=== PATIENT | female | born 1970 | race Hispanic/Latino ===

== ENCOUNTER 2018-01-16 19:31 | Observation (INO) | payer OTHER ==
[2018-01-16 19:39] VITALS: BMI 26.9
[2018-01-16 19:49] VITALS: TEMP 98.1
--- NOTE | 2018-01-16 20:02 | ED PDOC ---
Arrival/HPI - General Chief Complaint: Chest Pain Time Seen by Provider: 01/16/18 19:51 Historian: Patient, Family (Aunt and Uncle) - History of Present Illness Narrative History of Present Illness (Text): 01/17/18 20:36 A 48 year old female, whose past medical history includes kidney stones, presents to the emergency department complaining of non radiating, constant left sided chest pain since 1 hour ago. Patient reports pain was sitting at home when a sharp stabbing pain suddenly occurred. Patient reports experiencing associated leg numbness bilaterally and dizziness. Patient denies previous episodes of this pain. Patient denies anything increases the pain and denies taking any medication for the pain. Patient denies any fever, chills, cough, shortness of breath, diarrhea, nausea, vomiting, urinary symptoms, back pain, neck pain, headache, weakness, recent travel or any other complaints. 01/17/18 05:57 01/17/18 06:03 Time/Duration: 4-6 hours (earlier ton) Symptom Onset: Sudden Symptom Course: Unchanged Quality: Stabbing Severity Level: Moderate Activities at Onset: Light Context: Home Past Medical History - Provider Review Nursing Documentation Reviewed: Yes - Renal Hx Kidney Stones: Yes - Psychiatric Hx Substance Use: No - Surgical History Hx Appendectomy: Yes - Anesthesia Hx Anesthesia: No Hx Anesthesia Reactions: No Hx Malignant Hyperthermia: No Family/Social History - Physician Review Nursing Documentation Reviewed: Yes Family/Social History: Unknown Family HX Smoking Status: Never Smoked Hx Alcohol Use: No Hx Substance Use: No Allergies/Home Meds Allergies/Adverse Reactions: Allergies Penicillins Allergy (Verified 01/16/18 19:38) ANAPHYLAXIS Home Medications: Home Meds Medication Instructions Recorded Confirmed RX: No Known Home Med 01/16/18 01/16/18 Review of Systems - Physician Review All systems were reviewed & negative as marked: Yes - Review of Systems Constitutional: absent: Fevers, Night Sweats Respiratory: absent: SOB Cardiovascular: Chest Pain (+left sided chest pain) Gastrointestinal: absent: Diarrhea, Nausea, Vomiting Genitourinary Female: absent: Urine Output Changes Musculoskeletal: absent: Back Pain, Neck Pain Neurological: Dizziness, Other (+numbness in legs bilaterally). absent: Headache Physical Exam Vital Signs Reviewed: Yes Vital Signs Temp Pulse Resp BP Pulse Ox 01/16/18 19:38 98.1 F 80 18 145/103 H 100 Temperature: Afebrile Blood Pressure: Hypertensive Pulse: Regular Respiratory Rate: Normal Appearance: Positive for: Well-Appearing, Non-Toxic, Comfortable Pain Distress: None Mental Status: Positive for: Alert and Oriented X 3 - Systems Exam Head: Present: Atraumatic, Normocephalic Pupils: Present: PERRL Extroacular Muscles: Present: EOMI Conjunctiva: Present: Normal Mouth: Present: Moist Mucous Membranes Neck: Present: Normal Range of Motion Respiratory/Chest: Present: Clear to Auscultation, Good Air Exchange. No: Respiratory Distress, Accessory Muscle Use Cardiovascular: Present: Regular Rate and Rhythm, Normal S1, S2. No: Murmurs Abdomen: No: Tenderness, Distention, Peritoneal Signs Back: Present: Normal Inspection Upper Extremity: Present: Normal Inspection. No: Cyanosis, Edema Lower Extremity: Present: Normal Inspection. No: Edema Neurological: Present: GCS=15, CN II-XII Intact, Speech Normal Skin: Present: Warm, Dry, Normal Color. No: Rashes Psychiatric: Present: Alert, Oriented x 3, Normal Insight, Normal Concentration Medical Decision Making ED Course and Treatment: 01/16/18 20:40 Impression: 48 year old presenting to the emergency department complaining of chest pain. Plan: -- EKG -- Chest X-ray -- Cardiac w/u -- Aspirin -- UDS -- Reassess and disposition Progress Notes: 01/16/18 20:40 EKG: Ordered, reviewed, and independently interpreted the EKG. Rate : 80 BPM Rhythm : NSR Interpretation : Left axis deviation, No ST-segment elevations or depressions, no T-wave inversions, normal intervals. 01/16/18 22:45 Patient was reassessed and reports no chest discomfort after ASA administration. Patient agreeable w/POC to admit for observation. 01/16/18 22:53 Chest X-ray reviewed by me, results show rotatation and NAD. 01/16/18 22:[address] Torres who accepts the patient for admission for further observation and consult for Dr. Rosen, director education. - Scribe Statement The provider has reviewed the documentation as recorded by the Scribdamari Tao All medical record entries made by the Scribe were at my direction and personally dictated by me. I have reviewed the chart and agree that the record accurately reflects my personal performance of the history, physical exam, medical decision making, and the department course for this patient. I have also personally directed, reviewed, and agree with the discharge instructions and disposition. Disposition/Present on Arrival - Present on Arrival Any Indicators Present on Arrival: No History of DVT/PE: No History of Uncontrolled Diabetes: No Urinary Catheter: No History of Decub. Ulcer: No History Surgical Site Infection Following: None - Disposition Have Diagnosis and Disposition been Completed?: Yes Diagnosis: Chest pain Disposition: HOSPITALIZED Disposition Time: 22:58 Patient Plan: Admission Patient Problems: Current Active Problems Problem Status Onset Chest pain Acute Condition: STABLE
[2018-01-16 21:02] LABS: BASO # 0.04 K/mm3 (0.0-2.0); BASO % 0.4 % (0.0-3.0); EOS # 0.2 (0.0-0.7); EOS % 1.8 % (1.5-5.0); GRAN # 5.53 (1.4-6.5); GRAN % 57.9 % (50.0-68.0); LYMPH # 2.9 (1.2-3.4); LYMPH % 30.2 % (22.0-35.0); MEAN CELL VOLUME 92.1 fl (80.0-105.0); MEAN CORPUSCULAR HEMOGLOBIN 31.1 pg (25.0-35.0); MEAN CORPUSCULAR HGB CONC 33.8 g/dl (31.0-37.0); MEAN PLATELET VOLUME 10.2 fl (7.0-11.0); MONO # 0.9 (0.1-0.6); MONO % 9.7 % (1.0-6.0); RBC 4.18 10^6/uL (3.5-6.1); RED CELL DISTRIBUTION WIDTH 13.2 % (11.5-14.5); WHITE BLOOD COUNT 9.6 10^3/ul (4.5-11.0)
[2018-01-16 21:16] LABS: ALB/GLOB RATIO 1.2 (1.1-1.8); ALBUMIN 3.8 g/dL (3.0-4.8); ALT/SGPT 25 U/L (7-56); AST/SGOT 29 U/L (14-36); BLOOD UREA NITROGEN 14 mg/dL (7-21); CALCIUM 9.3 mg/dL (8.4-10.5); GFR NON-AFRICAN AMERICAN > 60
[2018-01-16 21:27] LABS: TROPONIN I < 0.01 ng/mL
[2018-01-16 22:25] LABS: URINE APPEARANCE SL CLOUDY (CLEAR); URINE BILIRUBIN NEGATIVE (NEGATIVE); URINE BLOOD LARGE (NEGATIVE); URINE COLOR YELLOW (YELLOW); URINE GLUCOSE (UA) NEGATIVE (NEGATIVE); URINE LEUKOCYTE ESTERASE SMALL Leu/uL (NEGATIVE); URINE PROTEIN NEGATIVE mg/dL (<30 mg/dL); URINE UROBILINOGEN 0.2 E.U./dL (<1 E.U./dL)
[2018-01-16 22:31] LABS: URINE RBC NEGATIVE /hpf (0-2)
[2018-01-16 23:07] LABS: BARBITURATES, UR NEGATIVE (NEGATIVE); BENZODIAZEPINES, UR NEGATIVE (NEGATIVE); OPIATES, UR NEGATIVE (NEGATIVE); PHENCYCLIDINE, UR NEGATIVE (NEGATIVE)
[2018-01-17 00:10] VITALS: RESP 18
[2018-01-17] MEDS ORDERED: Potassium Chloride 20 mEq ER Tab PO STA (00:38)
[2018-01-17 06:04] VITALS: BP 121/85; O2SAT 96
[2018-01-17 07:29] LABS: HEMOGLOBIN 13.1 g/dL (12.0-16.0); MEAN CELL VOLUME 91.6 fl (80.0-105.0); MEAN CORPUSCULAR HEMOGLOBIN 30.5 pg (25.0-35.0); MEAN CORPUSCULAR HGB CONC 33.3 g/dl (31.0-37.0); MEAN PLATELET VOLUME 9.5 fl (7.0-11.0); RBC 4.29 10^6/uL (3.5-6.1); RED CELL DISTRIBUTION WIDTH 13.3 % (11.5-14.5); WHITE BLOOD COUNT 7.6 10^3/ul (4.5-11.0)
[2018-01-17 07:55] LABS: TROPONIN I < 0.01 ng/mL
[2018-01-17 07:57] LABS: ALB/GLOB RATIO 1.1 (1.1-1.8); ALBUMIN 3.7 g/dL (3.0-4.8); ALT/SGPT 17 U/L (7-56); AST/SGOT 26 U/L (14-36); BLOOD UREA NITROGEN 10 mg/dL (7-21); CALCIUM 8.6 mg/dL (8.4-10.5); GFR NON-AFRICAN AMERICAN > 60; HDL CHOLESTEROL 50 mg/dL (29-60)
[2018-01-17 07:59] LABS: LDL CHOLESTEROL 108 mg/dL (0-129)
[2018-01-17] MEDS ORDERED: Pantoprazole 40 mg EC Tab PO SCH (08:00)
--- NOTE | 2018-01-17 09:39 | CARD ---
APPROVED REPORT Date of service: 01/16/2018 EKG Measurement Heart [id number] MD [id number] <Conclusion> Normal sinus rhythm Left axis deviation Possible Lateral infarct, age undetermined Abnormal ECG
--- NOTE | 2018-01-17 10:06 | RAD ---
Date of service: 01/16/2018 HISTORY: chest pain COMPARISON: No prior. FINDINGS: LUNGS: No active pulmonary disease. PLEURA: No significant pleural effusion identified, no pneumothorax apparent. CARDIOVASCULAR: No atherosclerotic calcification present Normal. OSSEOUS STRUCTURES: No significant abnormalities. VISUALIZED UPPER ABDOMEN: Normal. OTHER FINDINGS: None. IMPRESSION: No active disease.
[2018-01-17 14:19] VITALS: PULSE 71
--- NOTE | 2018-01-18 17:49 | CON ---
DATE: 01/17/2018 LOCATION: Patient in room 270, bed 2. REASON FOR CONSULTATION: Chest pain. HISTORY OF PRESENT ILLNESS: A 48-year-old female admitted with one-hour duration of stabbing type of chest pain and face became red with the pain. Patient also felt hot. Denies any palpitation or shortness of breath associated with this pain. Denies any prior history of any exertional chest pain or tightness or anginal type of symptoms. Patient states that previously she known to have anxiety. Patient not on any medications at home. PAST MEDICAL HISTORY: Positive for kidney stones, appendectomy, and anxiety. PERSONAL HISTORY: Patient drinks socially. Denies smoking. ALLERGIES: PATIENT ALLERGIC TO PENICILLIN AND CIPRO. MEDICATIONS AT HOME: Patient does not take any medications at home. FAMILY HISTORY: Mother has history of high blood pressure and also had brain aneurysm. REVIEW OF SYSTEMS: All the systems reviewed, positive mentioned in the history, others were negative. PHYSICAL EXAMINATION: VITAL SIGNS: Blood pressure 121/85, respirations 18, pulse 64, and temperature 98.1. HEENT: Head is normocephalic. Eyes: Pupils normal. Conjunctivae normal. Nose and throat: Normal. NECK: JVP low. Carotids equal. THORAX: AP diameter normal. LUNGS: Clear. CARDIOVASCULAR: S1, S2. ABDOMEN: Soft. No tenderness. No organomegaly. Bowel sounds normal. EXTREMITIES: No clubbing. No cyanosis. LABORATORY DATA: WBC 7.6, hemoglobin 13.1, hematocrit 39.3, and platelets 317. Sodium 138, potassium initially on admission was 3.3, but today potassium is 3.9. BUN and creatinine are normal. Calcium, magnesium, and phosphorous normal. Troponin x2 negative. Triglycerides 73, cholesterol 164, LDL 108, HDL 50. AST and ALT normal. Chest x-ray clear. EKG showed regular sinus rhythm, left anterior hemiblock. DIAGNOSES: Atypical chest pain and hypokalemia which has been corrected. PLAN: Patient wants to go home. Patient will do nuclear stress test and echocardiogram as outpatient. All arrangements have been made and patient will be followed in office and will follow with you. Magdy Rosen MD [facility] # [id number]
== END 2018-01-17 16:18 | disposition home or self-care (01) ==
LOC: ED 19:31 → ERH 23:05 → 2RNO 01-17 00:37 → 2RSO 01-17 11:01
PROVIDERS: ADMIT Internal Medicine; ATTEND Internal Medicine
DX: R07.89 Other chest pain (principal); E87.6 Hypokalemia; F41.9 Anxiety disorder, unspecified; Z87.442 Personal history of urinary calculi; Z88.0 Allergy status to penicillin
CPT/HCPCS: 36415; 71045; 80053; 80061; 80324; 80345; 80346; 80349; 80353; 80358; 80361; 81001; 82550; 83036; 83615; 83735; 83880; 83992; 84484; 85025; 85027; 87086; 87181; 93005; 99285; G0378